=== PATIENT | female | born 1995 | race Two or more races ===

== ENCOUNTER → 2017-09-29 | Outpatient (CLI) | payer BC, SELFPAY ==
[~2017-09-29] MED LIST: /CLON1TA PO; ABIL2TAB PO; AUGM875T27 PO; No Historical Meds; TYLE325T5 PO
--- NOTE | 2017-09-29 14:22 | REP ---
Clinical: Dyspnea and crackles . Comparison: None . Technique: PA and lateral. Findings: The mediastinum and cardiac silhouette are normal. The lung vinson are clear and without acute consolidation, effusion, or pneumothorax. The skeletal structures are intact and normal. Impression: 1. No acute cardiopulmonary process. Signed by Jani Montgomery MD 09/29/2017 02:12 P
== END ==
LOC: M LRY 13:56
PROVIDERS: ATTEND Nurse Practitioner Family
DX: R09.89 Other specified symptoms and signs involving the circulatory and respiratory systems (principal)